=== PATIENT | male | born 1945 | race Caucasian/White ===

== ENCOUNTER 2025-07-27 05:49 | Day surgery (SDC) | payer MEDICARE ==
[2025-07-20 10:42] VITALS: BMI 28.2
[2025-07-27] MEDS ORDERED: hydrALAZINE 20 MG/ML VIAL ONE (06:54)
[2025-07-27] MEDS ORDERED: CEFAZOLIN 2 GM VIAL ONE (07:00)
[2025-07-27] MEDS ORDERED: Bupivacaine/Epinephrine 0.25% 30 ML VIAL ONE (07:01)
[2025-07-27] MEDS ORDERED: PROPOFOL 20 ML ONE (07:11)
[2025-07-27] MEDS ORDERED: Lidocaine 1% PF 5 ML VIAL ONE (07:11)
[2025-07-27] MEDS ORDERED: Rocuronium Bromide 10 MG/ML (10ML VIAL) ONE (07:11)
[2025-07-27] MEDS ORDERED: Phenylephrine 40 MG/NS 250 ML 250 ML ONE (07:15)
[2025-07-27] MEDS ORDERED: SUGAMMADEX SODIUM 200 MG/2 ML VIAL ONE (08:15)
[2025-07-27] MEDS ORDERED: Ondansetron PF 4 MG/2 ML Vial ONE (08:15)
== END 2025-07-27 11:45 | disposition home or self-care (01) ==
LOC: CSHSDC 05:49
PROVIDERS: ATTEND Surgery
PROC: 0FT44ZZ Resection of Gallbladder, Percutaneous Endoscopic Approach (ICD-10-PCS; principal; 2025-07-27)
DX: K80.10 Calculus of gallbladder with chronic cholecystitis without obstruction (principal); C18.9 Malignant neoplasm of colon, unspecified; K25.4 Chronic or unspecified gastric ulcer with hemorrhage; Z87.891 Personal history of nicotine dependence
CPT/HCPCS: 47562; C9776; 71045; 88304; A5063; C1889; J0360; J1100; J2405; J2704; J3010; S2900